=== PATIENT | female | born 1965 ===

== ENCOUNTER → 2020-11-30 15:22 | Outpatient (ROUT) | payer OTHER, SELFPAY ==
[2020-11-30 16:44] LABS: TSH w/ Reflex to FT4 0.07 uIU/mL (0.47-4.68)
[2020-11-30 17:25] LABS: Free T4, Direct Thyroxine 1.75 ng/dL (0.78-2.19)
== END ==
PROVIDERS: Visit Provider Internal Medicine
DX: E03.9 Hypothyroidism, unspecified (principal)
CPT/HCPCS: 84439; 84443